=== PATIENT | female | born 1970 | race American Indian/Alaskan Native ===

== ENCOUNTER 2018-01-22 11:23 | Emergency (ER) | payer BC ==
[2018-01-22 12:28] LABS: Basophils % (Auto) 0.6 % (0.0-1.8); Eosinophils # (Auto) 0.1 K/mm3 (0.0-0.4); Eosinophils % (Auto) 1.3 % (0.0-4.3); Hemoglobin 11.5 gm/dl (10.1-14.3); Lymphocytes # (Auto) 1.9 K/mm3 (1.2-5.4); Lymphocytes % (Auto) 33.8 % (13.4-35.0); Mean Corpuscular HGB Conc 32 % (30-34); Monocytes # (Auto) 0.5 K/mm3 (0.0-0.8); Monocytes % (Auto) 9.4 % (0.0-7.3); Platelet Count 238 K/mm3 (140-440); Red Blood Count 5.53 M/mm3 (3.65-5.03); Red Cell Distribution Width 16.3 % (13.2-15.2)
[2018-01-22 12:30] LABS: Mean Corpuscular Hemoglobin 21 pg (28-32); Mean Corpuscular Volume 65 fl (79-97)
[2018-01-22 12:44] LABS: Bacteria,Urine 1+ /HPF (Negative); Bilirubin,Urine NEG (Negative); Blood,Urine MOD (Negative); Color,Urine Yellow (Yellow); Mucus,Urine FEW /HPF; Protein,Urine <15 mg/dL mg/dL (Negative); Urobilinogen,Urine < 2.0 mg/dL (<2.0)
--- NOTE | 2018-01-22 13:58 | Emergency Department Report ---
ED Female HPI - General Chief complaint: Vaginal Bleeding Stated complaint: BACK PAIN/VAGINAL BLEEDING Time Seen by Provider: 01/22/18 13:46 Source: patient Mode of arrival: Ambulatory Limitations: No Limitations - History of Present Illness Initial comments: Patient is 47 years old female with history of infertility. Patient presented to the ER complaining of low back pain for the last 3 days. 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 Patient stated that she has fertility testing end of December. Patient denied any vaginal bleeding or discharge at this moment. No fever no nausea no vomiting. Patient refuses x-rays and she stated that she will just follow-up with our fertility clinic. Complaint: vaginal bleeding Severity: mild - Related Data Allergies Allergy/AdvReac Type Severity Reaction Status Date / Time No Known Allergies Allergy Unverified 01/22/18 11:54 ED Review of Systems ROS: Stated complaint: BACK PAIN/VAGINAL BLEEDING Other details as noted in HPI Comment: All other systems reviewed and negative Constitutional: denies: chills Cardiovascular: denies: chest pain Gastrointestinal: denies: abdominal pain, nausea, vomiting Musculoskeletal: back pain ED Past Medical Hx - Past Medical History Previous Medical History?: Yes Hx GERD: Yes Additional medical history: Vaginal delivery x 5, Fertility testing and IUI - Surgical History Past Surgical History?: No - Social History Smoking Status: Never Smoker Substance Use Type: Alcohol ED Physical Exam - General Limitations: No Limitations General appearance: alert, in no apparent distress - Head Head exam: Present: atraumatic, normocephalic, normal inspection - Eye Eye exam: Present: normal appearance, PERRL - ENT ENT exam: Present: normal exam, normal orophraynx, mucous membranes moist - Neck Neck exam: Present: normal inspection, full ROM. Absent: tenderness, meningismus, lymphadenopathy - Respiratory Respiratory exam: Present: normal lung sounds bilaterally. Absent: respiratory distress, wheezes, rales, rhonchi, stridor - Cardiovascular Cardiovascular Exam: Present: regular rate, normal rhythm, normal heart sounds - GI/Abdominal GI/Abdominal exam: Present: soft, normal bowel sounds. Absent: distended, tenderness, guarding, rebound, rigid, mass, bruit, pulsatile mass - Extremities Exam Extremities exam: Present: normal inspection, full ROM, normal capillary refill - Back Exam Back exam: Present: normal inspection, full ROM, muscle spasm. Absent: tenderness, CVA tenderness (R), CVA tenderness (L), paraspinal tenderness, vertebral tenderness - Neurological Exam Neurological exam: Present: alert, oriented X3, CN II-XII intact, normal gait - Skin Skin exam: Present: warm, intact, normal color ED Course Vital Signs 01/22/18 11:54 Temperature 98.7 F Pulse Rate 89 Respiratory 20 Rate Blood Pressure 115/75 O2 Sat by Pulse 100 Oximetry ED Medical Decision Making - Lab Data Result diagrams: 01/22/18 12:08 Critical care attestation.: If time is entered above; I have spent that time in minutes in the direct care of this critically ill patient, excluding procedure time. ED Disposition Clinical Impression: Back pain Disposition: DC-01 TO HOME OR SELFCARE Is pt being admited?: No Condition: Stable Instructions: Low Back Strain (ED) Referrals: PRIMARY CARE, [Primary Care Provider] - 3-5 Days Forms: Work/School Release Form(ED)
[2018-01-22 14:37] VITALS: BP 107/72
== END 2018-01-22 14:00 | disposition home or self-care (01) ==
LOC: ED 11:23
DX: M54.5 Low back pain (principal); K21.9 Gastro-esophageal reflux disease without esophagitis
CPT/HCPCS: 36415; 81001; 84702; 85025; 99283

== ENCOUNTER 2019-10-06 23:28 | Emergency (ER) | payer BC, OTHER ==
[2019-10-07 02:08] LABS: Bacteria,Urine 3+ /HPF (Negative); Bilirubin,Urine NEG (Negative); Blood,Urine NEG (Negative); Color,Urine Straw (Yellow); Mucus,Urine FEW /HPF; Protein,Urine <15 mg/dL mg/dL (Negative); Urobilinogen,Urine < 2.0 mg/dL (<2.0)
[2019-10-07 03:03] LABS: Basophils % (Auto) 0.2 % (0.0-1.8); Eosinophils # (Auto) 0.1 K/mm3 (0.0-0.4); Eosinophils % (Auto) 1.7 % (0.0-4.3); Hematocrit 35.4 % (30.3-42.9); Hemoglobin 11.3 gm/dl (10.1-14.3); Lymphocytes % (Auto) 34.3 % (13.4-35.0); Mean Corpuscular HGB Conc 32 % (30-34); Monocytes # (Auto) 0.4 K/mm3 (0.0-0.8); Monocytes % (Auto) 7.2 % (0.0-7.3); Platelet Count 251 K/mm3 (140-440); Red Blood Count 5.46 M/mm3 (3.65-5.03); Red Cell Distribution Width 15.7 % (13.2-15.2)
[2019-10-07 03:11] LABS: Mean Corpuscular Volume 65 fl (79-97)
--- NOTE | 2019-10-07 06:31 | Emergency Department Report ---
ED General Adult HPI - General Chief complaint: Dizziness Stated complaint: DIZZINESS Time Seen by Provider: 10/07/19 06:30 Source: patient, EMS Mode of arrival: Wheelchair Limitations: No Limitations - History of Present Illness Initial comments: This is a 49 year old female who states that she developed a mild headache yesterday. She stated that she had a previous CT of the head. It was found to be normal. She stated that she started to breathe fast and her face felt funny. She stated that it felt like a "panic attack" but she hasn't had one for years. She has no ongoing dyspnea. She denied cough, chest pain, leg pain, recent travel, abdominal pain, nausea or vomiting. She had no neurological change. She states that she is essentially back to her baseline. -: Gradual Associated Symptoms: denies other symptoms - Related Data Allergies Allergy/AdvReac Type Severity Reaction Status Date / Time No Known Allergies Allergy Unverified 01/22/18 11:54 ED Review of Systems ROS: Stated complaint: DIZZINESS Other details as noted in HPI Constitutional: denies: chills, fever Eyes: denies: eye pain, eye discharge, vision change ENT: denies: ear pain, throat pain Respiratory: shortness of breath. denies: cough, wheezing Cardiovascular: denies: chest pain, palpitations Endocrine: no symptoms reported Gastrointestinal: abdominal pain (some suprapubic discomfort). denies: nausea, diarrhea Genitourinary: denies: urgency, dysuria, discharge Musculoskeletal: denies: back pain, joint swelling, arthralgia Skin: denies: rash, lesions Neurological: headache (headache was mild and bitemporal). denies: weakness, paresthesias Psychiatric: anxiety. denies: depression Hematological/Lymphatic: denies: easy bleeding, easy bruising ED Past Medical Hx - Past Medical History Hx GERD: Yes Additional medical history: Vaginal delivery x 5, Fertility testing and IUI. Panic disorder - Surgical History Past Surgical History?: No - Social History Smoking Status: Never Smoker Substance Use Type: Alcohol ED Physical Exam - General Limitations: No Limitations General appearance: alert, in no apparent distress - Head Head exam: Present: atraumatic, normocephalic - Eye Eye exam: Present: normal appearance, PERRL, EOMI. Absent: scleral icterus - ENT ENT exam: Present: mucous membranes moist - Neck Neck exam: Present: normal inspection. Absent: tenderness, meningismus - Respiratory Respiratory exam: Present: normal lung sounds bilaterally. Absent: respiratory distress - Cardiovascular Cardiovascular Exam: Present: regular rate, normal rhythm. Absent: systolic murmur, diastolic murmur, rubs, gallop - GI/Abdominal GI/Abdominal exam: Present: soft, normal bowel sounds. Absent: distended, tenderness, guarding, rebound, rigid - Extremities Exam Extremities exam: Present: normal inspection - Back Exam Back exam: Present: normal inspection - Neurological Exam Neurological exam: Present: alert, oriented X3, CN II-XII intact, other (cerebellar testing was normal.). Absent: motor sensory deficit - Psychiatric Psychiatric exam: Present: normal affect, normal mood - Skin Skin exam: Present: warm, dry, intact, normal color. Absent: rash ED Course Vital Signs 10/06/19 10/07/19 10/07/19 23:59 00:27 04:16 Temperature 98.6 F 98.6 F Pulse Rate 82 82 76 Respiratory 18 18 22 Rate Blood Pressure 117/77 117/77 121/72 O2 Sat by Pulse 97 96 100 Oximetry 10/07/19 10/07/19 10/07/19 04:30 04:33 04:45 Temperature Pulse Rate 74 75 Respiratory 15 20 16 Rate Blood Pressure 113/69 102/68 O2 Sat by Pulse 100 99 99 Oximetry 10/07/19 10/07/19 10/07/19 05:00 05:15 05:30 Temperature Pulse Rate 76 72 70 Respiratory 16 16 17 Rate Blood Pressure 102/68 108/72 104/63 O2 Sat by Pulse 99 98 100 Oximetry 10/07/19 10/07/19 10/07/19 05:45 06:00 06:15 Temperature Pulse Rate 69 69 70 Respiratory 16 16 16 Rate Blood Pressure 106/62 109/65 102/64 O2 Sat by Pulse 100 100 100 Oximetry 10/07/19 10/07/19 06:30 06:45 Temperature Pulse Rate 68 69 Respiratory 15 16 Rate Blood Pressure 108/73 118/69 O2 Sat by Pulse 100 99 Oximetry - Reevaluation(s) Reevaluation #1: Resting comfortably, asymptomatic. Appropriate for follow-up with primary care physician. Does not complain of headache. 10/07/19 08:41 10/07/19 08:41 ED Medical Decision Making - Lab Data Result diagrams: 10/07/19 02:03 10/07/19 06:48 Laboratory Results - last 24 hr 10/07/19 10/07/19 01:50 02:03 WBC 5.8 RBC 5.46 H Hgb 11.3 Hct 35.4 MCV 65 L MCH 21 L MCHC 32 RDW 15.7 H Plt Count 251 Lymph % (Auto) 34.3 [place] % (Auto) 7.2 Eos % (Auto) 1.7 Baso % (Auto) 0.2 Lymph # 2.0 [place] # 0.4 Eos # 0.1 Baso # 0.0 Seg Neutrophils % 56.6 Seg Neutrophils # 3.3 Urine Color Straw Urine Turbidity Clear Urine pH 6.0 Ur Specific [place] 1.011 Urine Protein <15 mg/dl Urine Glucose (UA) Neg Urine Ketones Neg Urine Blood Neg Urine Nitrite Neg Urine Bilirubin Neg Urine Urobilinogen < 2.0 Ur Leukocyte Esterase Neg Urine WBC (Auto) 1.0 Urine RBC (Auto) 1.0 U Epithel Cells (Auto) 1.0 Urine Bacteria (Auto) 3+ Urine Mucus Few Laboratory Results - last 24 hr 10/07/19 10/07/19 10/07/19 01:50 01:50 02:03 WBC 5.8 RBC 5.46 H Hgb 11.3 Hct 35.4 MCV 65 L MCH 21 L MCHC 32 RDW 15.7 H Plt Count 251 Lymph % (Auto) 34.3 [place] % (Auto) 7.2 Eos % (Auto) 1.7 Baso % (Auto) 0.2 Lymph # 2.0 [place] # 0.4 Eos # 0.1 Baso # 0.0 Seg Neutrophils % 56.6 Seg Neutrophils # 3.3 Sodium Potassium Chloride Carbon Dioxide Anion Gap BUN Creatinine Estimated GFR BUN/Creatinine Ratio Glucose Calcium Total Bilirubin Direct Bilirubin Indirect Bilirubin AST ALT Alkaline Phosphatase Total Protein Albumin Albumin/Globulin Ratio Urine Color Straw Urine Turbidity Clear Urine pH 6.0 Ur Specific [place] 1.011 Urine Protein <15 mg/dl Urine Glucose (UA) Neg Urine Ketones Neg Urine Blood Neg Urine Nitrite Neg Urine Bilirubin Neg Urine Urobilinogen < 2.0 Ur Leukocyte Esterase Neg Urine WBC (Auto) 1.0 Urine RBC (Auto) 1.0 U Epithel Cells (Auto) 1.0 Urine Bacteria (Auto) 3+ Urine Mucus Few Urine HCG, Qual Negative 10/07/19 06:48 WBC RBC Hgb Hct MCV MCH MCHC RDW Plt Count Lymph % (Auto) [place] % (Auto) Eos % (Auto) Baso % (Auto) Lymph # [place] # Eos # Baso # Seg Neutrophils % Seg Neutrophils # Sodium 141 Potassium 4.1 Chloride 106.5 Carbon Dioxide 25 Anion Gap 14 BUN 11 Creatinine 0.7 Estimated GFR > 60 BUN/Creatinine Ratio 16 Glucose 105 H Calcium 9.4 Total Bilirubin 0.40 Direct Bilirubin < 0.2 Indirect Bilirubin 0.2 AST 16 ALT 8 Alkaline Phosphatase 31 L Total Protein 7.1 Albumin 4.1 Albumin/Globulin Ratio 1.4 Urine Color Urine Turbidity Urine pH Ur Specific [place] Urine Protein Urine Glucose (UA) Urine Ketones Urine Blood Urine Nitrite Urine Bilirubin Urine Urobilinogen Ur Leukocyte Esterase Urine WBC (Auto) Urine RBC (Auto) U Epithel Cells (Auto) Urine Bacteria (Auto) Urine Mucus Urine HCG, Qual - EKG Data -: EKG Interpreted by Me EKG shows normal: sinus rhythm, axis, intervals, QRS complexes, ST-T waves Rate: normal - EKG Data Interpretation: no acute changes Critical care attestation.: If time is entered above; I have spent that time in minutes in the direct care of this critically ill patient, excluding procedure time. ED Disposition Clinical Impression: Acute anxiety Cephalalgia Qualifiers: Headache type: unspecified Headache chronicity pattern: unspecified pattern Intractability: not intractable Qualified Code(s): R51 - Headache Dyspnea Qualifiers: Dyspnea type: unspecified Qualified Code(s): R06.00 - Dyspnea, unspecified Disposition: - TO HOME OR SELFCARE Is pt being admited?: No Does the pt Need Aspirin: No Condition: Stable Instructions: Acute Headache (ED), Anxiety (ED) Additional Instructions: Return to the emergency department any recurrent symptoms acute change or problem. Referrals: PRIMARY CARE, [Primary Care Provider] - 2-3 Days Time of Disposition: 08:43
[2019-10-07 06:47] VITALS: BP 118/69
[2019-10-07 07:15] LABS: HCG Qualitative,Urine Negative (Negative)
[2019-10-07 07:18] LABS: Alanine Aminotransferase 8 units/L (7-56); Albumin 4.1 g/dL (3.9-5); BUN/Creatinine Ratio 16; Blood Urea Nitrogen 11 mg/dL (7-17); Calcium 9.4 mg/dL (8.4-10.2); Hemolysis Index 0
[2019-10-07 07:30] LABS: Bilirubin,Direct < 0.2 mg/dL (0-0.2)
== END 2019-10-07 09:37 | disposition home or self-care (01) ==
LOC: ED 23:28
DX: F41.9 Anxiety disorder, unspecified (principal); R06.00 Dyspnea, unspecified; K21.9 Gastro-esophageal reflux disease without esophagitis
CPT/HCPCS: 36415; 80048; 80076; 81001; 81025; 85025; 87086; 93005; 93010

== ENCOUNTER 2020-09-15 19:53 | Emergency (ER) | payer OTHER ==
[2020-09-15 20:26] VITALS: BP 133/81
--- NOTE | 2020-09-15 21:40 | Event Note ---
ED Screening Note Date of service: 09/15/20 Time: 21:36 ED Screening Note: 50-year-old -Italian female presents to the emergency room for 2-week history of cough and cold. Patient denies any fever chills admits to a cough and taking [id number] testing without much relief. She is reports pain in her chest when she takes a deep breath and cough. Last menstrual period was 09/05/2020. This initial assessment/diagnostic orders/clinical plan/treatment(s) is/are subject to change based on patients health status, clinical progression and re- assessment by fellow clinical providers in the ED. Further treatment and workup at subsequent clinical providers discretion. Patient/guardian urged not to elope from the ED as their condition may be serious if not clinically assessed and managed. Initial orders include:
--- NOTE | 2020-09-15 22:25 | XRay Report ---
CHEST 2 VIEWS INDICATION / CLINICAL INFORMATION: sob,cough and rales. COMPARISON: None available. FINDINGS: SUPPORT DEVICES: None. HEART / MEDIASTINUM: No significant abnormality. LUNGS / PLEURA: No significant pulmonary or pleural abnormality. No pneumothorax. ADDITIONAL FINDINGS: No significant additional findings. IMPRESSION: No acute cardiopulmonary abnormality. Signer Name: Efren Coleman MD Signed: 09/15/2020 10:21 PM Workstation Name: [id number]
[2020-09-15] MEDS ORDERED: IPRATROPIUM/ALBUTEROL SULFATE 3 ML AMPUL.NEB IH ONE (22:39)
[2020-09-15] MEDS ORDERED: predniSONE 20 MG TAB PO ONE (22:40)
--- NOTE | 2020-09-15 22:43 | Emergency Department Report ---
Minor Respiratory - HPI Chief Complaint: Upper Respiratory Infection Stated Complaint: CHEST COUGH Time Seen by Provider: 09/15/20 22:37 Pain Location: Chest Severity: mild Minor Respiratory: Yes Able to Tolerate Fluids, Yes Cough, No Rhinorrhea, No Sore Throat, No Ear Pain, No Sick Contacts, No Hemoptysis, No Chest Pain, No Shortness of Breath, No Fever Other History: Patient is a 50-year-old -[place] female who comes to the emergency room complaining of 2-week history of cough. She has not seen her primary care provider. She has no known exposure to COVID-19. She has no fever or chills. She does report sinus congestion and a raspy cough. It is worse at night. She has taken [id number] medicines with no relief. Patient denies any chest pain. She denies shortness of breath with activity. She has no lower extremity edema. ED Review of Systems ROS: Stated complaint: CHEST COUGH Other details as noted in HPI Comment: All other systems reviewed and negative ED Past Medical Hx - Past Medical History Previous Medical History?: Yes Hx GERD: Yes Additional medical history: Vaginal delivery x 5, Fertility testing and IUI. Panic disorder - Surgical History Past Surgical History?: No - Family History Family history: no significant - Social History Smoking Status: Never Smoker Substance Use Type: None - Medications Home Medications: Home Medications Medication Instructions Recorded Confirmed Last Taken Type Azithromycin [Zithromax Z-EMIGDIO] 250 mg PO DAILY #6 tablet 09/15/20 Unknown Rx Benzonatate [Tessalon Perles] 100 mg PO Q12H PRN #20 capsule 09/15/20 Unknown Rx Cetirizine HCl [ZyrTEC] 10 mg PO DAILY #30 capsule 09/15/20 Unknown Rx Fluticasone [Flonase] 1 spray NS QDAY #1 bottle 09/15/20 Unknown Rx predniSONE [Deltasone] 20 mg PO DAILY #5 tablet 09/15/20 Unknown Rx Minor Respiratory Exam - Exam General: Vital signs noted. No distress. Alert and acting appropriately. HEENT: Yes Moist Mucous Membranes, No Pharyngeal Erythema, No Pharyngeal Exudates, No Rhinorrhea, No Conjuctival Injection, No Frontal Tenderness, No Maxillary Tenderness Ear: Neither TM Bulge, Neither TM Erythema, Neither EAC Pain, Neither EAC Discharge Neck: Yes Supple, No Adenopathy Lungs: Yes Good Air Exchange, Yes Wheezes, Yes Cough, No Stridor, No Labored Respirations, No Retractions, No Use of Accessory Muscles, No Other Abnormal Lung Sounds Heart: Yes Regular, No Murmur Abdomen: Yes Normal Bowel Sounds, No Tenderness, No Peritoneal Signs Skin: No Rash, No Edema Neurologic: Alert and oriented, no deficits. Musculoskeletal: Unremarkable. ED Course Vital Signs 09/15/20 20:18 Temperature 98 F Pulse Rate 98 H Respiratory 18 Rate Blood Pressure 133/81 O2 Sat by Pulse 100 Oximetry ED Medical Decision Making - Radiology Data Radiology results: report reviewed, image reviewed interpreted by me: No consolidation or infiltrate No acute process - Medical Decision Making Labs 09/15/20 21:46 TSH 1.380 Vital Signs 09/15/20 20:18 Temperature 98 F Pulse Rate 98 H Respiratory 18 Rate Blood Pressure 133/81 O2 Sat by Pulse 100 Oximetry X-ray noted. Given clinical exam patient given prednisone and DuoNeb in the ER. Patient has no hypotension or tachycardia. She has no hypoxia. Patient will be discharged home with follow-up with her primary care doctor. She verbalizes understanding of discharge plan of care including medications, follow-up and activity and diet. - Differential Diagnosis COVID-19, pneumonia, bronchitis Critical care attestation.: If time is entered above; I have spent that time in minutes in the direct care of this critically ill patient, excluding procedure time. ED Disposition Clinical Impression: URTI (acute upper respiratory infection), Bronchitis Disposition: DC-01 TO HOME OR SELFCARE Is pt being admited?: No Does the pt Need Aspirin: No Condition: Stable Instructions: Upper Respiratory Infection, Adult, [id number], Chronic Bronchitis (ED) Additional Instructions: meds as ordered follow up with pcp in 48 hours to be sure you are improving good handwashing wear mask stay well hydrated humidifier to your sleeping area Prescriptions: predniSONE [Deltasone] 20 mg PO DAILY #5 tablet Fluticasone [Flonase] 1 spray NS QDAY #1 bottle Benzonatate [Tessalon Perles] 100 mg PO Q12H PRN #20 capsule PRN Reason: Cough Azithromycin [Zithromax Z-EMIGDIO] 250 mg PO DAILY #6 tablet Cetirizine HCl [ZyrTEC] 10 mg PO DAILY #30 capsule Referrals: DONNA LOPEZ MD [Staff Physician] - 3-5 Days Time of Disposition: 22:41
== END 2020-09-15 23:20 | disposition home or self-care (01) ==
LOC: ED 19:53
DX: J06.9 Acute upper respiratory infection, unspecified (principal); J40 Bronchitis, not specified as acute or chronic; K21.9 Gastro-esophageal reflux disease without esophagitis; Z79.2 Long term (current) use of antibiotics; Z79.899 Other long term (current) drug therapy
CPT/HCPCS: 36415; 71046; 84443; 94640; 99284; J7512

== ENCOUNTER 2021-08-16 16:00 | Emergency (ER) | payer OTHER ==
[2021-08-16 16:07] VITALS: BP 139/88
[2021-08-16] MEDS ORDERED: SODIUM CHLORIDE 0.9% 1000 ML 1,000 ML IV ONE (16:43)
[2021-08-16] MEDS ORDERED: ACETAMINOPHEN 325 MG TAB PO ONE (16:43)
--- NOTE | 2021-08-16 16:47 | Emergency Department Report ---
ED General Adult HPI - General Chief complaint: Weakness Stated complaint: dizzy,headaches,cramps in back Source: patient Mode of arrival: Ambulatory Limitations: No Limitations - History of Present Illness Initial comments: 51-year-old female who denies any significant past medical history presents to the ER today with complaints of lower back pain, headache, and dizziness. Patient states that she started with a low back cramps 3 days ago. She states that they feel like menstrual cramps. She states that they have been intermittent in nature and nonradiating. She denies any particular injury or strenuous activity. She denies any associated abdominal pain, UTI symptoms, or abnormal vaginal bleeding. She does state that last menstrual cycle was July 08. She did not have menstrual cycle in July. She did take 1 home test and it was negative. Patient reports associated frontal headache which she has been having constantly over the past 2 to 3 days and dizziness which started today. She states that she was at work standing, when she felt dizzy and felt like she was about to pass out. Patient states that the dizziness has since resolved but she still continues to have a headache. She denies any recent head injury. She denies any associated nausea, vomiting, URI symptoms, fever, chills or neck stiffness. She denies any chest pain or shor tness of breath. She denies any lower extremity swelling or calf pain. She states that she has not been taking anything for the headache. She states that she does not smoke. She drinks occasionally. She denies any illicit drug use. MD Complaint: Low back cramps, dizzy, headache -: Gradual, days(s) (2-3) - Related Data Previous Rx's Medication Instructions Recorded Last Taken Type Azithromycin [Zithromax Z-EMIGDIO] 250 mg PO DAILY #6 tablet 09/15/20 Unknown Rx Benzonatate [Tessalon Perles] 100 mg PO Q12H PRN #20 capsule 09/15/20 Unknown Rx Cetirizine HCl [ZyrTEC] 10 mg PO DAILY #30 capsule 09/15/20 Unknown Rx Fluticasone [Flonase] 1 spray NS QDAY #1 bottle 09/15/20 Unknown Rx predniSONE [Deltasone] 20 mg PO DAILY #5 tablet 09/15/20 Unknown Rx Acetaminophen [Acetaminophen 8 650 mg PO Q8HR #30 tablet.er 08/16/21 Unknown Rx Hour] Allergies Allergy/AdvReac Type Severity Reaction Status Date / Time No Known Allergies Allergy Verified 08/16/21 16:07 ED Review of Systems ROS: Stated complaint: dizzy,headaches,cramps in back Other details as noted in HPI Comment: All other systems reviewed and negative Constitutional: denies: chills, diaphoresis, fever, malaise, weakness Eyes: denies: eye pain, eye discharge, vision change ENT: denies: ear pain, throat pain, dental pain, hearing loss, epistaxis, congestion Respiratory: denies: cough, orthopnea, shortness of breath, SOB with exertion, SOB at rest, wheezing Cardiovascular: denies: chest pain, palpitations, dyspnea on exertion, edema, syncope, paroxysmal nocturnal dyspnea Gastrointestinal: denies: abdominal pain, nausea, vomiting, diarrhea, constipation, hematemesis, melena, hematochezia Genitourinary: denies: urgency, dysuria, frequency, hematuria, discharge, abnormal menses, dyspareunia Musculoskeletal: back pain. denies: joint swelling, arthralgia Skin: denies: rash, lesions, change in color, change in hair/nails, pruritus Neurological: headache, vertigo. denies: weakness, numbness, paresthesias, confusion, abnormal gait Psychiatric: denies: anxiety, depression, auditory hallucinations, visual hallucinations, homicidal thoughts, suicidal thoughts Hematological/Lymphatic: denies: easy bleeding, easy bruising, swollen glands ED Past Medical Hx - Past Medical History Hx GERD: Yes Additional medical history: Vaginal delivery x 5, Fertility testing and IUI. Panic disorder - Social History Smoking Status: Never Smoker Substance Use Type: None - Medications Home Medications: Home Medications Medication Instructions Recorded Confirmed Last Taken Type Azithromycin [Zithromax Z-EMIGDIO] 250 mg PO DAILY #6 tablet 09/15/20 Unknown Rx Benzonatate [Tessalon Perles] 100 mg PO Q12H PRN #20 capsule 09/15/20 Unknown Rx Cetirizine HCl [ZyrTEC] 10 mg PO DAILY #30 capsule 09/15/20 Unknown Rx Fluticasone [Flonase] 1 spray NS QDAY #1 bottle 09/15/20 Unknown Rx predniSONE [Deltasone] 20 mg PO DAILY #5 tablet 09/15/20 Unknown Rx Acetaminophen [Acetaminophen 8 650 mg PO Q8HR #30 tablet.er 08/16/21 Unknown Rx Hour] ED Physical Exam - General Limitations: No Limitations General appearance: alert, in no apparent distress - Head Head exam: Present: atraumatic, normocephalic, normal inspection - Eye Eye exam: Present: normal appearance, PERRL, EOMI Pupils: Present: normal accommodation - ENT ENT exam: Present: normal exam, mucous membranes moist, TM's normal bilaterally - Neck Neck exam: Present: normal inspection, full ROM. Absent: meningismus - Respiratory Respiratory exam: Present: normal lung sounds bilaterally. Absent: respiratory distress, wheezes, rales, rhonchi, stridor - Cardiovascular Cardiovascular Exam: Absent: regular rate, normal rhythm, normal heart sounds - GI/Abdominal GI/Abdominal exam: Present: soft. Absent: distended, tenderness, guarding, rebound - Extremities Exam Extremities exam: Present: normal inspection. Absent: full ROM, normal capillary refill, pedal edema, calf tenderness - Back Exam Back exam: Present: normal inspection, full ROM - Neurological Exam Neurological exam: Present: alert, oriented X3, CN II-XII intact, normal gait. Absent: motor sensory deficit - Psychiatric Psychiatric exam: Present: normal affect, normal mood - Skin Skin exam: Present: intact ED Course Vital Signs 08/16/21 08/16/21 16:04 16:58 Temperature 98.6 F Pulse Rate 82 Respiratory 18 16 Rate Blood Pressure 139/88 [Left] O2 Sat by Pulse 99 Oximetry ED Medical Decision Making - Lab Data Result diagrams: 08/16/21 17:24 08/16/21 17:24 - EKG Data EKG shows normal: sinus rhythm (76) Rate: normal - EKG Data Interpretation: normal EKG - Medical Decision Making All labs reviewed--CBC and CMP unremarkable. hCG is negative. UA negative for any infection. EKG shows no STEMI, acute ischemic changes or significant dysrhythmias. Troponin is negative. Patient currently sitting comfortably. She is not in any acute distress. She is not toxic or ill-appearing. She is neurologically intact with a normal gait. Her vital signs are stable. The history, exam, diagnostic testing and the patient's current condition does not suggest meningitis, stroke, sepsis, subarachnoid hemorrhage, intracranial bleeding, encephalitis, temporal arteritis, encephalitis, unstable angina/IL, PE (PERC neg) or other significant pathology that would warrant further testing, continued ED treatment, admission, neurological consultation or other specialist evaluation at this point. Discussed all lab results with patient. At this point the exact cause is of her symptoms unclear. I did inform her of her negative test. 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 Patient expressed understanding of all instructions and agree with plan. Patient stable at time of discharge. Critical care attestation.: If time is entered above; I have spent that time in minutes in the direct care o f this critically ill patient, excluding procedure time. ED Disposition Clinical Impression: Low back pain, Headache, Dizziness, Missed period Disposition: HOME / SELF CARE / HOMELESS Is pt being admited?: No Does the pt Need Aspirin: No Condition: Stable Instructions: General Headache Without Cause, Acute Back Pain, Adult, D izziness, [id number] Additional Instructions: I recommend that you take Tylenol as prescribed to help with any headache or back pain. 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 Return to the ER if symptoms worsens or changes in any way. Prescriptions: Acetaminophen [Acetaminophen 8 Hour] 650 mg PO Q8HR #30 tablet.er Referrals: PRIMARY CARE, [Primary Care Provider] - 3-5 Days Forms: Work/School Release Form(ED) Time of Disposition: 19:30
[2021-08-16 18:16] LABS: Bacteria,Urine 1+ /HPF (Negative); Bilirubin,Urine NEG (Negative); Blood,Urine NEG (Negative); Color,Urine Colorless (Yellow); Mucus,Urine FEW /HPF; Protein,Urine <15 mg/dL mg/dL (Negative); Urobilinogen,Urine < 2.0 mg/dL (<2.0); WBC,Urine < 1.0 /HPF (0.0-6.0)
[2021-08-16 18:17] LABS: Alanine Aminotransferase 14 units/L (7-56); Albumin 4.1 g/dL (3.9-5); Blood Urea Nitrogen 11 mg/dL (7-17); Calcium 9.4 mg/dL (8.4-10.2); Hemolysis Index 9
[2021-08-16 18:22] LABS: BUN/Creatinine Ratio 16
[2021-08-16 18:42] LABS: Basophils % (Auto) 0.5 % (0.0-1.8); Eosinophils # (Auto) 0.1 K/mm3 (0.0-0.4); Eosinophils % (Auto) 1.1 % (0.0-4.3); Hematocrit 34.5 % (30.3-42.9); Hemoglobin 10.6 gm/dl (10.1-14.3); Lymphocytes # (Auto) 2.3 K/mm3 (1.2-5.4); Lymphocytes % (Auto) 47.8 % (13.4-35.0); Mean Corpuscular HGB Conc 31 % (30-34); Monocytes # (Auto) 0.6 K/mm3 (0.0-0.8); Monocytes % (Auto) 11.8 % (0.0-7.3); Platelet Count 217 K/mm3 (140-440); Red Blood Count 5.27 M/mm3 (3.65-5.03); Red Cell Distribution Width 15.5 % (13.2-15.2)
[2021-08-16 18:51] LABS: Mean Corpuscular Volume 66 fl (79-97)
--- NOTE | 2021-08-17 08:39 | Electrocardiograph Report ---
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
--- NOTE | 2021-08-17 09:34 | Electrocardiograph Report ---
[facility] Test Date: 2021-08-16 Test Time: 19:20:50 Pat Name: MICHELET RAMIREZ Department: Room: Gender: F Crtts: [id number] : 1970 Requested By: RONALD ARIAS Order Number: [id number] Reading MD: Rafael Salazar Measurements Intervals [place] Rate: 76 P: 56 [place]: 166 QRS: 67 QRSD: 73 T: 58 QT: 380 QTc: 427 Interpretive Statements Sinus rhythm nonspecfic st-t Compared to ECG 08/16/2021 16:45:34 Low QRS voltage now present Electronically Signed On 08-17-2021 9:33:56 EDT by Rafael Salzaar
== END 2021-08-16 19:40 | disposition home or self-care (01) ==
LOC: ED 16:00
DX: M54.50 Low back pain, unspecified (principal); R51.9 Headache, unspecified; R42 Dizziness and giddiness; N91.2 Amenorrhea, unspecified
CPT/HCPCS: 36415; 80053; 81001; 83690; 84484; 84703; 85025; 93005; 96360; 99283; J7030

== ENCOUNTER 2022-01-16 12:07 | Emergency (ER) | payer OTHER | END 2022-01-16 12:12 | disposition left against medical advice (07) | LOC: ED 12:07 | DX: N92.4 Excessive bleeding in the premenopausal period (principal); Z53.21 Procedure and treatment not carried out due to patient leaving prior to being seen by health care provider ==

== ENCOUNTER 2022-03-18 00:34 | Emergency (ER) | payer OTHER ==
[2022-03-18 01:01] VITALS: BP 122/87
[2022-03-18 01:57] LABS: HCG Qualitative,Urine Negative (Negative)
[2022-03-18 03:10] LABS: Bilirubin,Urine NEG (Negative); Blood,Urine NEG (Negative); Color,Urine Yellow (Yellow); Protein,Urine <15 mg/dL mg/dL (Negative); Urobilinogen,Urine < 2.0 mg/dL (<2.0)
[2022-03-18 04:06] LABS: Bacteria,Urine 4+ /HPF (Negative); Mucus,Urine 2+ /HPF
== END 2022-03-18 07:00 | disposition left against medical advice (07) ==
LOC: ED 00:34
DX: M54.9 Dorsalgia, unspecified (principal); Z53.21 Procedure and treatment not carried out due to patient leaving prior to being seen by health care provider
CPT/HCPCS: 81001; 81025; 87086

== ENCOUNTER 2022-04-11 17:06 | Emergency (ER) | payer OTHER ==
[2022-04-11 18:49] LABS: HCG Qualitative,Urine Negative (Negative)
[2022-04-11] MEDS ORDERED: KETOROLAC 30 MG/1 ML INJ IV ONE (23:39)
[2022-04-11] MEDS ORDERED: ONDANSETRON 4 MG/2 ML INJ IV ONE (23:39)
[2022-04-11] MEDS ORDERED: SODIUM CHLORIDE 0.9% 1000 ML 1,000 ML IV ONE (23:39)
[2022-04-11 23:54] VITALS: BP 117/73
[2022-04-12 00:08] LABS: Bilirubin,Urine NEG (Negative); Blood,Urine SM (Negative); Color,Urine Straw (Yellow); Protein,Urine <15 mg/dL mg/dL (Negative); Urobilinogen,Urine < 2.0 mg/dL (<2.0)
[2022-04-12 00:14] LABS: Bacteria,Urine 2+ /HPF (Negative); Mucus,Urine FEW /HPF; WBC,Urine < 1.0 /HPF (0.0-6.0)
[2022-04-12 00:26] LABS: Alanine Aminotransferase 13 units/L (7-56); Albumin 4.4 g/dL (3.9-5); BUN/Creatinine Ratio 14; Blood Urea Nitrogen 13 mg/dL (7-17); Calcium 9.7 mg/dL (8.4-10.2); Hemolysis Index 6
[2022-04-12 00:29] LABS: Basophils % (Auto) 0.4 % (0.0-1.8); Eosinophils # (Auto) 0.1 K/mm3 (0.0-0.4); Eosinophils % (Auto) 1.2 % (0.0-4.3); Hemoglobin 11.7 gm/dl (10.1-14.3); Lymphocytes # (Auto) 2.2 K/mm3 (1.2-5.4); Lymphocytes % (Auto) 34.1 % (13.4-35.0); Mean Corpuscular HGB Conc 33 % (30-34); Monocytes # (Auto) 0.5 K/mm3 (0.0-0.8); Monocytes % (Auto) 7.5 % (0.0-7.3); Platelet Count 246 K/mm3 (140-440); Red Blood Count 5.55 M/mm3 (3.65-5.03); Red Cell Distribution Width 16.3 % (13.2-15.2)
[2022-04-12 00:32] LABS: Mean Corpuscular Volume 65 fl (79-97)
--- NOTE | 2022-04-12 01:28 | Emergency Department Report ---
ED Abdominal Pain HPI - General Chief Complaint: Abdominal Pain Stated Complaint: AB PAIN Time Seen by Provider: 04/11/22 23:38 Source: patient Mode of arrival: Ambulatory Limitations: No Limitations - History of Present Illness Initial Comments: Is a 52-year-old who presents for left flank pain radiating to bilateral lower abdominal described as cramping sharp aching 02/21. Patient denies history of renal stone there is no dysuria frequency or urgency. Patient denies fevers or chills. Patient has history of chronic back pain. And uterine fibroid. Patient denies vaginal bleeding at this time. There are no other exacerbating or relieving factors. Patient. MD Complaint: flank pain Severity scale (0 -10): 0 - Related Data Previous Rx's Medication Instructions Recorded Last Taken Type Azithromycin [Zithromax Z-EMIGDIO] 250 mg PO DAILY #6 tablet 09/15/20 Unknown Rx Benzonatate [Tessalon Perles] 100 mg PO Q12H PRN #20 capsule 09/15/20 Unknown Rx Cetirizine HCl [ZyrTEC] 10 mg PO DAILY #30 capsule 09/15/20 Unknown Rx Fluticasone [Flonase] 1 spray NS QDAY #1 bottle 09/15/20 Unknown Rx predniSONE [Deltasone] 20 mg PO DAILY #5 tablet 09/15/20 Unknown Rx Acetaminophen [Acetaminophen 8 650 mg PO Q8HR #30 tablet.er 08/16/21 Unknown Rx Hour] Ibuprofen [Motrin 800 MG tab] 800 mg PO Q8HR PRN #30 tablet 04/12/22 Unknown Rx bisacodyL [Dulcolax suppos] 10 mg MN QDAY PRN #5 supp.rect 04/12/22 Unknown Rx polyethylene glycoL 3350 [Miralax 17 gm PO BID PRN #14 packet 04/12/22 Unknown Rx 3350] Allergies Allergy/AdvReac Type Severity Reaction Status Date / Time No Known Allergies Allergy Verified 04/11/22 18:07 ED Review of Systems ROS: Stated complaint: AB PAIN Other details as noted in HPI Constitutional: denies: chills, fever Eyes: denies: eye pain, eye discharge, vision change ENT: denies: ear pain, throat pain Respiratory: denies: cough, shortness of breath, wheezing Cardiovascular: denies: chest pain, palpitations Endocrine: no symptoms reported Gastrointestinal: abdominal pain (Bilateral lower). denies: nausea, vomiting, diarrhea, constipation, melena Genitourinary: denies: urgency, dysuria, discharge Musculoskeletal: back pain Skin: denies: rash, lesions Neurological: denies: headache, weakness, paresthesias Psychiatric: denies: anxiety, depression Hematological/Lymphatic: denies: easy bleeding, easy bruising ED Past Medical Hx - Past Medical History Previous Medical History?: Yes Hx GERD: Yes Additional medical history: Vaginal delivery x 5, Fertility testing and IUI. Panic disorder - Social History Smoking Status: Never Smoker - Medications Home Medications: Home Medications Medication Instructions Recorded Confirmed Last Taken Type Azithromycin [Zithromax Z-EMIGDIO] 250 mg PO DAILY #6 tablet 09/15/20 Unknown Rx Benzonatate [Tessalon Perles] 100 mg PO Q12H PRN #20 capsule 09/15/20 Unknown Rx Cetirizine HCl [ZyrTEC] 10 mg PO DAILY #30 capsule 09/15/20 Unknown Rx Fluticasone [Flonase] 1 spray NS QDAY #1 bottle 09/15/20 Unknown Rx predniSONE [Deltasone] 20 mg PO DAILY #5 tablet 09/15/20 Unknown Rx Acetaminophen [Acetaminophen 8 650 mg PO Q8HR #30 tablet.er 08/16/21 Unknown Rx Hour] Ibuprofen [Motrin 800 MG tab] 800 mg PO Q8HR PRN #30 tablet 04/12/22 Unknown Rx bisacodyL [Dulcolax suppos] 10 mg MN QDAY PRN #5 supp.rect 04/12/22 Unknown Rx polyethylene glycoL 3350 [Miralax 17 gm PO BID PRN #14 packet 04/12/22 Unknown Rx 3350] ED Physical Exam - General Limitations: No Limitations General appearance: alert, in no apparent distress - Head Head exam: Present: atraumatic, normocephalic - Eye Eye exam: Present: EOMI Pupils: Present: normal accommodation - ENT ENT exam: Present: mucous membranes moist - Neck Neck exam: Present: normal inspection, full ROM. Absent: tenderness, lymphadenopathy - Respiratory Respiratory exam: Present: normal lung sounds bilaterally. Absent: respiratory distress, wheezes, stridor - Cardiovascular Cardiovascular Exam: Present: regular rate, normal rhythm, normal heart sounds. Absent: systolic murmur, diastolic murmur, rubs, gallop - GI/Abdominal GI/Abdominal exam: Present: soft, tenderness (Bilateral lower abdomen), normal bowel sounds. Absent: distended, guarding, rebound, rigid, bruit, hernia - Expanded GI/Abdominal Exam Expanded GI/Abdominal exam: Absent: psoas sign, obturator sign, heel tap sign, Rob[place]o's sign, Rovsing's sign, tenderness at [place], ascites - Rectal Rectal exam: Present: deferred - Extremities Exam Extremities exam: Present: normal inspection, full ROM, normal capillary refill - Back Exam Back exam: Present: normal inspection, full ROM, muscle spasm. Absent: CVA tenderness (R), CVA tenderness (L), paraspinal tenderness, vertebral tenderness - Expanded Back Exam Expanded Back exam: Absent: saddle anesthesia Back exam: Negative Straight Leg Raising: Left, Right - Neurological Exam Neurological exam: Present: alert, oriented X3, CN II-XII intact, normal gait - Expanded Neurological Exam Expanded Patient oriented to: Present: person, place, time Speech: Present: fluid speech Motor strength exam: RUE: 5, LUE: 5, RLE: 5, LLE: 5 Best Eye Response ([place]): (4) open spontaneously Best Motor Response ([place]): (6) obeys commands Best Verbal Response ([place]): (5) oriented [place] Total: 15 - Psychiatric Psychiatric exam: Present: normal affect, normal mood - Skin Skin exam: Present: warm, dry, intact, normal color. Absent: rash ED Course Vital Signs 04/11/22 04/11/22 04/12/22 18:03 23:54 00:05 Temperature 98.8 F 98 F Pulse Rate 81 78 Respiratory 16 18 Rate Blood Pressure 119/75 Blood Pressure 117/73 [Right] O2 Sat by Pulse 99 100 98 Oximetry ED Medical Decision Making - Lab Data Result diagrams: 04/11/22 23:42 04/11/22 23:42 Labs 04/11/22 04/11/22 04/11/22 18:16 23:42 23:42 WBC 6.5 RBC 5.55 H Hgb 11.7 Hct 36.0 MCV 65 L MCH 21 L MCHC 33 RDW 16.3 H Plt Count 246 Lymph % (Auto) 34.1 [place] % (Auto) 7.5 H Eos % (Auto) 1.2 Baso % (Auto) 0.4 Lymph # (Auto) 2.2 [place] # (Auto) 0.5 Eos # (Auto) 0.1 Baso # (Auto) 0.0 Seg Neutrophils % 56.8 Seg Neutrophils # 3.7 Sodium 139 Potassium 3.8 Chloride 104.8 Carbon Dioxide 25 Anion Gap 13 BUN 13 Creatinine 0.9 Estimated GFR > 60 BUN/Creatinine Ratio 14 Glucose 112 H Calcium 9.7 Total Bilirubin 0.30 AST 17 ALT 13 Alkaline Phosphatase 41 Total Protein 7.3 Albumin 4.4 Albumin/Globulin Ratio 1.5 Urine Color Urine Turbidity Urine pH Ur Specific [place] Urine Protein Urine Glucose (UA) Urine Ketones Urine Blood Urine Nitrite Urine Bilirubin Urine Urobilinogen Ur Leukocyte Esterase Urine WBC (Auto) Urine RBC (Auto) U Epithel Cells (Auto) Urine Bacteria (Auto) Urine Mucus Urine HCG, Qual Negative 04/12/22 23:55 WBC RBC Hgb Hct MCV MCH MCHC RDW Plt Count Lymph % (Auto) [place] % (Auto) Eos % (Auto) Baso % (Auto) Lymph # (Auto) [place] # (Auto) Eos # (Auto) Baso # (Auto) Seg Neutrophils % Seg Neutrophils # Sodium Potassium Chloride Carbon Dioxide Anion Gap BUN Creatinine Estimated GFR BUN/Creatinine Ratio Glucose Calcium Total Bilirubin AST ALT Alkaline Phosphatase Total Protein Albumin Albumin/Globulin Ratio Urine Color Straw Urine Turbidity Clear Urine pH 6.0 Ur Specific [place] 1.010 Urine Protein <15 mg/dl Urine Glucose (UA) Neg Urine Ketones Neg Urine Blood Sm Urine Nitrite Neg Urine Bilirubin Neg Urine Urobilinogen < 2.0 Ur Leukocyte Esterase Neg Urine WBC (Auto) < 1.0 Urine RBC (Auto) 1.0 U Epithel Cells (Auto) 1.0 Urine Bacteria (Auto) 2+ Urine Mucus Few Urine HCG, Qual - Radiology Data Radiology results: report reviewed, image reviewed ABDOMEN 1 VIEW INDICATION / CLINICAL INFORMATION: abd pain. COMPARISON: None available. FINDINGS: TUBES / LINES: None. BOWEL GAS PATTERN: No significant abnormality. FREE AIR / EXTRALUMINAL GAS: None seen. ADDITIONAL FINDINGS: No significant additional findings. IMPRESSION: 1. No significant abnormality. Signer Name: Vasyl Tineo DO Signed: 04/12/2022 1:32 AM Workstation Name: [id number] Transcribed By: TAYO Dictated By: VASYL TINEO DO Electronically Authenticated By: VASYL TINEO DO Signed Date/Time: 04/12/22131 DD/ 1 TD/TT: Print - Medical Decision Making Labs noted as above nonactionable. KUB normal gas pattern. Pain is improved with medications given in ED. Patient DC'd home with prescriptions. Patient will follow-up primary care doctor in 2 to 3 days. Patient DC'd home in stable condition at this time. Patient verbalized agreement and understanding of discharge plan. Critical care attestation.: If time is entered above; I have spent that time in minutes in the direct care of this critically ill patient, excluding procedure time. ED Disposition Clinical Impression: Abdominal pain Qualifiers: Abdominal location: lower abdomen, unspecified Qualified Code(s): R10.30 - Lower abdominal pain, unspecified Back pain Qualifiers: Back pain location: low back pain Chronicity: acute Back pain laterality: unspecified Sciatica presence: without sciatica Qualified Code(s): M54.50 - Low back pain, unspecified Disposition: 01 HOME / SELF CARE / HOMELESS Is pt being admited?: No Does the pt Need Aspirin: No Condition: Stable Instructions: Constipation, Adult, [id number], Abdominal Pain, Adult, [id number], Abdominal Pain (ED) Additional Instructions: Take medication as prescribed, follow-up with your doctor in 2 to 3 days. Return to emergency department should symptoms worsen. Prescriptions: bisacodyL [Dulcolax suppos] 10 mg MN QDAY PRN #5 supp.rect PRN Reason: Constipation polyethylene glycoL 3350 [Miralax 3350] 17 gm PO BID PRN #14 packet PRN Reason: Constipation Ibuprofen [Motrin 800 MG tab] 800 mg PO Q8HR PRN #30 tablet PRN Reason: Pain Referrals: DONNA LOPEZ MD [Staff Physician] - 3-5 Days Forms: Work/School Release Form(ED) Time of Disposition: 01:58
--- NOTE | 2022-04-12 01:37 | XRay Report ---
ABDOMEN 1 VIEW INDICATION / CLINICAL INFORMATION: abd pain. COMPARISON: None available. FINDINGS: TUBES / LINES: None. BOWEL GAS PATTERN: No significant abnormality. FREE AIR / EXTRALUMINAL GAS: None seen. ADDITIONAL FINDINGS: No significant additional findings. IMPRESSION: 1. No significant abnormality. Signer Name: Vasyl Tineo DO Signed: 04/12/2022 1:32 AM Workstation Name: [id number]
== END 2022-04-12 02:24 | disposition home or self-care (01) ==
LOC: ED 17:06
DX: R10.31 Right lower quadrant pain (principal); R10.32 Left lower quadrant pain; M54.9 Dorsalgia, unspecified; K21.9 Gastro-esophageal reflux disease without esophagitis
CPT/HCPCS: 36415; 74018; 80053; 81001; 81025; 85025; 96361; 96374; 96375; 99284; J1885; J2405; J7030